=== PATIENT | female | born 1935 | race Caucasian/White ===

== ENCOUNTER 2025-06-11 08:20 | Inpatient (IN) | payer MEDICARE, BC ==
[~2025-06-11] VITALS: Ht 152.4 cm; Wt 52.2 kg
[2025-06-11] VITALS (7 sets, daily range): BP systolic 122–156; BP diastolic 46–59; TEMP 97.4–98.4; O2SAT 92–98
[2025-06-11] MEDS ORDERED: LOSA100T32 PO (08:41)
[2025-06-11] MEDS ORDERED: DAPA5TAB PO ×2 (08:41→09:37)
[2025-06-11] MEDS ORDERED: ATEN50TA PO (08:41)
[2025-06-11] MEDS ORDERED: CYCL5.5D EACHEYE (08:41)
[2025-06-11] MEDS ORDERED: ESTR0.5T2 PO (08:41)
[2025-06-11] MEDS ORDERED: HYDR50TA68 PO (08:41)
[2025-06-11] MEDS ORDERED: FURO40TA5 PO (08:41)
[2025-06-11 09:16] LABS: PLATELET COUNT (AUTO) 306 K/uL (179-408); RED BLOOD CELL COUNT(AUTO) 3.76 MIL/uL (3.63-4.92); RED CELL DISTRIBUTION WIDTH 15.6 % (12.3-17.7); WHITE BLOOD COUNT (AUTO) 7.7 K/uL (3.8-11.8)
[2025-06-11 09:30] LABS: CREATININE 1.3 mg/dL (0.6-1.3); SODIUM SERUM 139 mmol/L (136-145); UREA NITROGEN, BLOOD 27 mg/dL (7-18)
[2025-06-11] MEDS: FUROSEMIDE 40 MG/4 ML VIAL IV ONE (09:33)
[2025-06-11 09:36] LABS: ASPARTATE AMINOTRANSFERASE 28 U/L (15-37); TOTAL PROTEIN, SERUM 6.3 g/dL (6.4-8.2)
[2025-06-11] MEDS ORDERED: POTA10CA94 PO (09:37)
[2025-06-11] MEDS ORDERED: MIRA50TA PO (09:37)
[2025-06-11 10:09] LABS: *BILIRUBIN,URIN NEGATIVE (NEGATIVE); *BLOOD, URINE NEGATIVE (NEGATIVE); *COLOR,URINE YELLOW (YELLOW); *KETONES,URINE NEGATIVE (NEGATIVE); *PROTEIN,URINE NEGATIVE (NEGATIVE); *UROBILINOGEN,URINE 0.2 E.U./dl (NORMAL); LEUKOCYTE ESTERASE ,URINE NEGATIVE (NEGATIVE); NITRITE, URINE NEGATIVE (NEGATIVE); UGLUCOSE TRACE (NEGATIVE)
[2025-06-11 10:22] LABS: *CLARITY,URINE SLIGHTLY HAZY (CLEAR)
[2025-06-11 10:23] LABS: SQUAMOUS EPITHELIAL CELL,UR FEW /HPF (NONE SEEN)
[2025-06-11] MEDS ORDERED: ONDANSETRON 4 MG/2 ML VIAL ONE (10:41)
[2025-06-11] MEDS ORDERED: IBUP-23 PO (10:42)
[2025-06-11] MEDS ORDERED: MORPHINE SULFATE 2 MG/1 ML DISP.SYRIN ONE (10:42)
[2025-06-11] MEDS ORDERED: AZEL137S7 BNOSTRILS (10:45)
[2025-06-11] MEDS: MORPHINE SULFATE 2 MG/1 ML DISP.SYRIN IV ONE (10:54)
[2025-06-11] MEDS: ONDANSETRON 4 MG/2 ML VIAL IV ONE (10:55)
[2025-06-11] MEDS ORDERED: MAGNESIUM HYDROXIDE 30 ML LIQUID UDC PO PRN (12:45)
[2025-06-11] MEDS ORDERED: ONDANSETRON 4 MG/2 ML VIAL IV PRN (12:45)
[2025-06-11] MEDS: IBUPROFEN 200 MG TABLET PO PRN (13:20)
[2025-06-11] MEDS: AZITHROMYCIN IV 500 MG in IV DEXTROSE 5% 250 ML IV SCH (14:17)
[2025-06-11] MEDS: POTASSIUM CHLORIDE 10 MEQ TAB.PRT.SR PO SCH (17:15)
[2025-06-11] MEDS: FUROSEMIDE 40 MG/4 ML VIAL IV SCH (17:16)
[2025-06-11] MEDS: ENOXAPARIN SODIUM 30 MG/0.3 ML DISP.SYRIN SQ SCH (21:03)
[2025-06-11] MEDS: ACETAMINOPHEN 325 MG TABLET PO PRN (23:30)
[2025-06-12 04:27] VITALS: BP 154/63; TEMP 97.7; O2SAT 94
[2025-06-12 07:13] LABS: PLATELET COUNT (AUTO) 275 K/uL (179-408); RED BLOOD CELL COUNT(AUTO) 3.67 MIL/uL (3.63-4.92); RED CELL DISTRIBUTION WIDTH 15.1 % (12.3-17.7); WHITE BLOOD COUNT (AUTO) 7.2 K/uL (3.8-11.8)
[2025-06-12 07:34] LABS: CREATININE 1.4 mg/dL (0.6-1.3); SODIUM SERUM 138 mmol/L (136-145); UREA NITROGEN, BLOOD 26 mg/dL (7-18)
[2025-06-12 07:50] VITALS: BP 134/50; TEMP 97.8; O2SAT 92
[2025-06-12] MEDS: LOSARTAN POTASSIUM 50 MG TABLET PO SCH (08:10)
[2025-06-12] MEDS: DAPAGLIFLOZIN PROPANEDIOL 5 MG TABLET PO SCH (08:10)
[2025-06-12] MEDS: ATENOLOL 50 MG TABLET PO SCH (08:30)
[2025-06-12 11:40] VITALS: BP 106/45; TEMP 97.9; O2SAT 93
[2025-06-12 13:30] VITALS: O2SAT 99
[2025-06-12] MEDS: FUROSEMIDE 40 MG/4 ML VIAL IV SCH (15:19)
[2025-06-12 16:11] VITALS: BP 96/49; TEMP 98; O2SAT 99
[2025-06-12 19:30] VITALS: BP 110/45; TEMP 97.9; O2SAT 95
[2025-06-13 01:51] VITALS: O2SAT 98
[2025-06-13 08:03] VITALS: BP 109/45; TEMP 98.4; O2SAT 96
[2025-06-13 11:08] VITALS: BP 104/44; TEMP 97.6; O2SAT 94
[2025-06-13 15:31] VITALS: BP 136/50; TEMP 98.3; O2SAT 96
[2025-06-13 15:35] VITALS: O2SAT 98
[2025-06-13] MEDS: AZITHROMYCIN 250 MG TABLET PO SCH (17:00)
[2025-06-13] MEDS: FUROSEMIDE 40 MG/4 ML VIAL IV SCH (17:23)
[2025-06-13 19:27] VITALS: BP 126/62; TEMP 97.8; O2SAT 90
[2025-06-14] VITALS (9 sets, daily range): BP systolic 98–168; BP diastolic 43–60; TEMP 97.9–98.7; O2SAT 91–98
[2025-06-14 07:02] LABS: PLATELET COUNT (AUTO) 263 K/uL (179-408); RED BLOOD CELL COUNT(AUTO) 3.77 MIL/uL (3.63-4.92); RED CELL DISTRIBUTION WIDTH 15.1 % (12.3-17.7); WHITE BLOOD COUNT (AUTO) 8.0 K/uL (3.8-11.8)
[2025-06-14 07:18] LABS: CREATININE 1.2 mg/dL (0.6-1.3); SODIUM SERUM 140 mmol/L (136-145); UREA NITROGEN, BLOOD 29 mg/dL (7-18)
[2025-06-14] MEDS: KETOROLAC TROMETHAMINE 15 MG INJ IVP ONE (12:04)
[2025-06-14] MEDS: ERYTHROMYCIN 0.5% OPHT OINT 3.5 GM TUBE RIGHTEYE SCH (20:52)
[2025-06-14] MEDS ORDERED: HOME MED MISCELLANEOUS EACHEYE SCH (21:00)
[2025-06-15] VITALS (8 sets, daily range): BP systolic 97–165; BP diastolic 36–75; TEMP 97.5–98.4; O2SAT 94–97
[2025-06-15] MEDS: IBUPROFEN 400 MG TABLET PO PRN (00:09)
[2025-06-15 07:33] LABS: PLATELET COUNT (AUTO) 262 K/uL (179-408); RED BLOOD CELL COUNT(AUTO) 3.81 MIL/uL (3.63-4.92); RED CELL DISTRIBUTION WIDTH 15.0 % (12.3-17.7); WHITE BLOOD COUNT (AUTO) 7.1 K/uL (3.8-11.8)
[2025-06-15 07:50] LABS: CREATININE 1.2 mg/dL (0.6-1.3); SODIUM SERUM 140 mmol/L (136-145); UREA NITROGEN, BLOOD 31 mg/dL (7-18)
[2025-06-16 03:54] VITALS: O2SAT 95
[2025-06-16 05:30] VITALS: BP 142/50; TEMP 98.5; O2SAT 96
[2025-06-16 07:36] VITALS: BP 138/56; TEMP 97.8; O2SAT 96
[2025-06-16] MEDS: BUMETANIDE 1 MG TABLET PO SCH (08:31)
[2025-06-16] MEDS ORDERED: BUMETANIDE 1 MG TABLET PO SCH (09:00)
[2025-06-16] MEDS ORDERED: BUME2TAB7 PO ×2 (11:20→15:59)
[2025-06-16 11:36] VITALS: BP 113/41; TEMP 98.2; O2SAT 93
[2025-06-16 14:05] VITALS: TEMP 98.2
[2025-06-16] MEDS: BACLOFEN 10 MG TABLET PO PRN (15:02)
[2025-06-16] MEDS ORDERED: BACL5TAB PO (15:59)
[2025-06-16] MEDS ORDERED: ERYT3.5O24 RIGHTEYE (16:20)
[2025-06-16] MEDS ORDERED: ENOX30DI SUBCUT (16:20)
== END 2025-06-16 15:15 | DRG 291 ==
LOC: ER 08:20 → TELE3 10:35
PROVIDERS: ADMIT Nurse Practitioner Acute Care; ATTEND Nurse Practitioner Acute Care
DX: I11.0 Hypertensive heart disease with heart failure (principal); I50.33 Acute on chronic diastolic (congestive) heart failure; J96.91 Respiratory failure, unspecified with hypoxia; E44.1 Mild protein-calorie malnutrition; M48.54XA Collapsed vertebra, not elsewhere classified, thoracic region, initial encounter for fracture; E88.09 Other disorders of plasma-protein metabolism, not elsewhere classified; I27.29 Other secondary pulmonary hypertension; Z99.81 Dependence on supplemental oxygen; N17.9 Acute kidney failure, unspecified; M48.56XA Collapsed vertebra, not elsewhere classified, lumbar region, initial encounter for fracture; Z79.84 Long term (current) use of oral hypoglycemic drugs; Z98.890 Other specified postprocedural states; T50.1X6A Underdosing of loop [high-ceiling] diuretics, initial encounter; Y92.239 Unspecified place in hospital as the place of occurrence of the external cause; Z74.09 Other reduced mobility; Z79.899 Other long term (current) drug therapy
CPT/HCPCS: 36415; 71045; 72131; 83735; 84100; 84484; 85025; 85730; 93307; A4606; A4663; A6213; G0378; J0456; J0696; J1650; J1885; J1938; J2270; J2405; J7050; Q0144